=== PATIENT | female | born 1995 | race Two or more races ===

== ENCOUNTER 2020-11-07 21:20 | Inpatient (IN) | payer MEDICAID ==
[~2020-11-07] VITALS: Ht 170.2 cm; Wt 98.0 kg
[2020-11-07] MEDS ORDERED: PNV1TABL76 PO (21:46)
[2020-11-07] MEDS: LACTATED RINGERS 1,000 ML IV SCH (22:51)
[2020-11-07] MEDS ORDERED: PENICILLIN G POTASSIUM 5 MMU in DEXT 5% WATER 100 ML IV SCH (23:00)
[2020-11-07 23:44] LABS: BASOPHILS % 0.3 % (0.0-2.0); EOSINOPHILS % 0.2 % (0.0-5.0); HEMATOCRIT. 40.1 % (36.0-48.0); HEMOGLOBIN. 13.7 g/dL (12.0-16.0); LYMPHOCYTES % 14.8 % (20.0-50.0); MEAN CORPUSCULAR HEMOGLOBIN 32.1 pg (28.0-32.0); MEAN CORPUSCULAR VOLUME 93.9 fL (81.0-99.0); MEAN PLATELET VOLUME 9.2 fl (7.4-10.4); MONOCYTES % 5.6 % (2.0-8.0); NEUTROPHILS % 79.1 % (40.0-76.0); PLATELET 230 x1000/uL (130-400); RED BLOOD CELL COUNT 4.28 mill/uL (4.2-5.4); RED CELL DISTRIBUTION WIDTH 13.5 % (11.6-14.6)
[2020-11-07 23:49] LABS: CLARITY URINE CLEAR (CLEAR); COLOR URINE DARK YELLOW (YELLOW); KETONES URINE 4+ (NEGATIVE); LEUKOCYTE ESTERASE URINE TRACE (NEGATIVE); NITRITE URINE NEGATIVE (NEGATIVE); OCCULT BLOOD URINE NEGATIVE (NEGATIVE); PH URINE 6.5 (4.5-8.0); PROTEIN URINE TRACE (NEGATIVE); SPECIFIC GRAVITY URINE 1.026 (1.005-1.030); UROBILINOGEN URINE 0.2 E.U./dL (0.2-1.0)
[2020-11-07 23:56] LABS: CHLORIDE 105 mEq/L (98-107)
[2020-11-08 00:15] LABS: *AMPHETAMINES SCREEN URINE NEGATIVE (NEGATIVE)
[2020-11-08 00:16] LABS: *BARBITURATES SCREEN URINE NEGATIVE (NEGATIVE); *BENZODIAZEPINES SCREEN URINE NEGATIVE (NEGATIVE); *COCAINE SCREEN URINE NEGATIVE (NEGATIVE); CANNABINOID URINE SCREEN NEGATIVE (NEGATIVE); METHADONE URINE SCREEN NEGATIVE (NEGATIVE); OPIATES URINE SCREEN NEGATIVE (NEGATIVE); PHENCYCLIDINE URINE SCREEN NEGATIVE (NEGATIVE)
[2020-11-08 00:23] LABS: HEPATITIS B SURFACE ANTIGEN NEGATIVE
[2020-11-08] MEDS: DEXT 5%/LR + PITOCIN 20UNITS/L 1,000 ML IV SCH (00:34)
[2020-11-08] MEDS: LACTATED RINGERS 1,000 ML IV SCH ×2 (01:48→08:10)
[2020-11-08] MEDS: PENICILLIN G POTASSIUM 2.5 MMU in DEXTROSE 5% WATER 50 ML IV SCH ×5 (03:57→23:31)
[2020-11-08] MEDS ORDERED: ROPIVACAINE HCL/PF EPIDURAL 200 ML EPI SCH (04:15)
[2020-11-08] MEDS ORDERED: FENTANYL CITRATE/PF 50MCG/ML 2ML VIAL ONE (20:34)
[2020-11-08] MEDS ORDERED: BUPIVACAINE HCL/PF 0.25% (2.5MG/ML) 10ML ONE (20:57)
[2020-11-08] MEDS ORDERED: MISOPROSTOL 100MCG TABLET VG PRN (23:30)
[2020-11-09] MEDS: LACTATED RINGERS 1,000 ML IV SCH (00:06)
[2020-11-09] MEDS: PENICILLIN G POTASSIUM 2.5 MMU in DEXTROSE 5% WATER 50 ML IV SCH (04:10)
[2020-11-09] MEDS ORDERED: BUPIVACAINE HCL/PF 0.25% (2.5MG/ML) 10ML ONE (06:58)
[2020-11-09] MEDS: DEXT 5%/LR + PITOCIN 20UNITS/L 1,000 ML IV SCH (07:10)
[2020-11-09] MEDS ORDERED: GLYCERIN/WITCH HAZEL LEAF MEDICATED PAD TOP PRN (08:45)
[2020-11-09] MEDS ORDERED: DIPHENHYDRAMINE 25MG CAPSULE PO PRN (08:45)
[2020-11-09] MEDS ORDERED: BISACODYL 10MG SUPP PR PRN (08:45)
[2020-11-09] MEDS ORDERED: IBUPROFEN 800MG TABLET PO PRN (08:45)
[2020-11-09] MEDS ORDERED: BENZOCAINE/LANOLIN/ALOE VERA SPRAY TOP PRN (08:45)
[2020-11-09] MEDS ORDERED: DEXT 5%/LR + PITOCIN 20UNITS/L 1,000 ML IV SCH (08:45)
[2020-11-09] MEDS ORDERED: ACETAMINOPHEN WITH CODEINE 300/30MG TABLET PO PRN (08:45)
[2020-11-09] MEDS ORDERED: HEMORRHOIDAL SUPP PR PRN (08:45)
[2020-11-09] MEDS ORDERED: IBUPROFEN 400MG TABLET PO PRN (08:45)
[2020-11-09 10:30] VITALS: BP 131/65
[2020-11-09 15:30] VITALS: BP 130/83
[2020-11-09] MEDS: SIMETHICONE 80MG TABLET CHEW PO SCH ×2 (18:05→20:47)
[2020-11-09] MEDS: MAGNESIUM/ALUMINUM HYDROXIDE/SIMETHICONE 30ML UDC PO SCH ×2 (18:05→20:46)
[2020-11-09] MEDS: PRENATAL VIT/FE FUMARATE/FA TABLET PO SCH (18:05)
[2020-11-09 19:30] VITALS: BP 125/80
[2020-11-09] MEDS ORDERED: DOCUSATE SODIUM 100MG CAPSULE PO SCH (21:00)
[2020-11-10 04:00] VITALS: BP 113/54
[2020-11-10 06:40] LABS: BASOPHILS % 0.4 % (0.0-2.0); EOSINOPHILS % 0.6 % (0.0-5.0); LYMPHOCYTES % 23.3 % (20.0-50.0); MEAN CORPUSCULAR HEMOGLOBIN 32.6 pg (28.0-32.0); MEAN CORPUSCULAR VOLUME 94.8 fL (81.0-99.0); MEAN PLATELET VOLUME 9.1 fl (7.4-10.4); MONOCYTES % 7.3 % (2.0-8.0); NEUTROPHILS % 68.4 % (40.0-76.0); PLATELET 185 x1000/uL (130-400); RED BLOOD CELL COUNT 3.38 mill/uL (4.2-5.4); RED CELL DISTRIBUTION WIDTH 13.3 % (11.6-14.6)
[2020-11-10] MEDS ORDERED: FERROUS SULFATE 325MG TABLET PO SCH (07:30)
[2020-11-10 08:00] VITALS: BP 130/81
[2020-11-10] MEDS: PRENATAL VIT/FE FUMARATE/FA TABLET PO SCH (08:43)
[2020-11-10] MEDS: MAGNESIUM/ALUMINUM HYDROXIDE/SIMETHICONE 30ML UDC PO SCH (08:43)
[2020-11-10] MEDS: SIMETHICONE 80MG TABLET CHEW PO SCH (08:43)
== END 2020-11-10 13:00 | disposition home or self-care (01) | DRG 560 ==
LOC: INTOOBSV 21:20 → 8 EST LDRP 21:20 → OBSVTOIN 21:20 → 8EST 11-09 10:33
PROVIDERS: ADMIT Obstetrics & Gynecology; ATTEND Obstetrics & Gynecology
PROC: 10D07Z6 Extraction of Products of Conception, Vacuum, Via Natural or Artificial Opening (ICD-10-PCS; principal; 2020-11-09)
DX: O36.63X0 Maternal care for excessive fetal growth, third trimester, not applicable or unspecified (principal); Z3A.00 Weeks of gestation of pregnancy not specified; Z37.0 Single live birth
CPT/HCPCS: 36415; 80053; 80305; 81003; 84550; 85025; 86592; 86703; 86762; 86850; 86900; 87340; 99281; J2540; J2590; J2795; J3010; J3490; J7060; A4315